=== PATIENT | female | born 1980 | race Caucasian/White ===

== ENCOUNTER 2024-08-02 07:18 | Outpatient (CLI) | payer OTHER, SELFPAY | END 2024-08-02 07:19 | disposition home or self-care (01) | LOC: NFLDREF 08-03 10:53 | PROVIDERS: PCP Physician Assistant Medical; Visit Provider Physician Assistant Medical | DX: R30.0 Dysuria (principal); N39.0 Urinary tract infection, site not specified | CPT/HCPCS: 87086 ==